=== PATIENT | female | born 1960 | race Caucasian/White ===

== ENCOUNTER 2023-02-10 08:38 | Outpatient (CLI) | payer OTHER, SELFPAY ==
--- NOTE | 2023-02-10 08:45 | CRLHL7_ITS ---
For Patients: As a result of the Cures Act, medical imaging exams and procedure reports are released immediately into your electronic medical record. You may view this report before your referring provider. If you have questions, please contact your health care provider. BILATERAL SCREENING MAMMOGRAM WITH COMPUTER-AIDED DETECTION AND TOMOSYNTHESIS TECHNIQUE: CC and MLO views were obtained. These mammographic images have been obtained using full-field digital technique. These mammographic images were interpreted with the benefit of computer-aided detection. Breast Tomosynthesis was used in this interpretation. COMPARISON FILM: 01/15/22, 12/16/20, 12/14/19. FINDINGS: There are scattered areas of fibroglandular density IMPRESSION: There is no radiographic evidence for malignancy. ASSESSMENT: BI-RADS Category 1: Negative RECOMMENDATION: Routine screening mammogram in 1 year. A lay language report of this examination will be provided to the patient. Timohty Limon M.D. Diagnostic Radiologist [email or web address] CAESAR/[email or web address] Transcribed: 2:46 p.mMariam evans/Dictated by: Timothy Limon MD @ 02/10/2023 9:23:00 AM (Electronically Signed)
== END 2023-02-10 08:39 | disposition home or self-care (01) ==
PROVIDERS: PCP Family Medicine; Visit Provider Family Medicine
DX: Z12.31 Encounter for screening mammogram for malignant neoplasm of breast (principal)
CPT/HCPCS: 77063; 77067

== ENCOUNTER 2024-02-23 14:22 | Outpatient (CLI) | payer OTHER, SELFPAY ==
--- NOTE | 2024-02-23 14:40 | MM_ITS ---
Patient: RUSSELL JONES Facility:?[facility] Patient ID:?[id number] Site Patient ID:?[id number]. Site :?[id number] Study:?XRay-Breast Bilateral 3D W/CAD-02/23/2024 2:46:27 PM Ordering Physician:Jeffrey Final Report: BILATERAL SCREENING MAMMOGRAM WITH COMPUTER-AIDED DETECTION AND TOMOSYNTHESIS TECHNIQUE: CC and MLO views were obtained. These mammographic images have been obtained using full-field digital technique. These mammographic images were interpreted with the benefit of computer-aided detection. Breast Tomosynthesis was used in this interpretation. COMPARISON FILM: 02/10/23, 01/15/22, 12/16/20. FINDINGS: There are scattered areas of fibroglandular density IMPRESSION: There is no radiographic evidence for malignancy. ASSESSMENT: BI-RADS Category 2: Benign RECOMMENDATION: Routine screening mammogram in 1 year. A lay language report of this examination will be provided to the patient. Timothy Limon M.D. Diagnostic Radiologist [email or web address] CAESAR/nathan Transcribed: 12:54 p.mMariam evans/Dictated by: Timothy Limon MD @ 02/24/2024 9:26:00 AM Signed by:?Timothy Limon MD @02/24/2024 3:02:17 PM (Electronic Signature)
== END 2024-02-23 14:23 | disposition home or self-care (01) ==
LOC: MAMMO 14:25
PROVIDERS: PCP Family Medicine; Visit Provider Family Medicine
DX: Z12.31 Encounter for screening mammogram for malignant neoplasm of breast (principal)
CPT/HCPCS: 77063; 77067

== ENCOUNTER 2025-07-03 14:00 | Outpatient (RCR) | payer OTHER, SELFPAY | END 2025-07-03 14:23 | disposition home or self-care (01) | PROVIDERS: PCP Family Medicine; Visit Provider Family Medicine | DX: M79.651 Pain in right thigh (principal); M25.551 Pain in right hip; M25.561 Pain in right knee; R29.898 Other symptoms and signs involving the musculoskeletal system; Z51.89 Encounter for other specified aftercare | CPT/HCPCS: 97110; 97161 ==